=== PATIENT | female | born 1995 | race Caucasian/White ===

== ENCOUNTER 2024-03-23 09:27 | Emergency (ER) | payer OTHER ==
[~2024-03-23] VITALS: Ht 160 cm; Wt 90.7 kg
[2024-03-23 09:43] VITALS: O2SAT 99
[2024-03-23 09:44] LABS: BASOPHILS % 0.9 % (0.0-2.0); EOSINOPHILS % 1.3 % (0.0-5.0); HEMATOCRIT. 39.6 % (36.0-48.0); LYMPHOCYTES % 31.8 % (20.0-50.0); MEAN CORPUSCULAR HEMOGLOBIN 29.7 pg (28.0-32.0); MEAN CORPUSCULAR HGB CONC 32.9 g/dL (31.0-37.0); MEAN CORPUSCULAR VOLUME 90.4 fL (81.0-99.0); MEAN PLATELET VOLUME 6.5 fl (7.4-10.4); MONOCYTES % 5.1 % (2.0-8.0); NEUTROPHILS % 60.9 % (40.0-76.0); PLATELET 312 x1000/uL (130-400); RED BLOOD CELL COUNT 4.38 mill/uL (4.2-5.4); RED CELL DISTRIBUTION WIDTH 13.1 % (11.6-14.6); WHITE BLOOD COUNT 6.5 x1000/uL (4.5-11.0)
[2024-03-23 09:50] LABS: CHLORIDE 107 mEq/L (98-107); SODIUM 137 mEq/L (136-145)
[2024-03-23 09:52] LABS: CALCIUM 9.5 mg/dL (8.7-10.4); CARBON DIOXIDE 25 mEq/L (21-32)
[2024-03-23 09:57] LABS: CREATININE 0.6 mg/dL (0.6-1.0); GLUCOSE 94 mg/dL (70-105); UREA NITROGEN BLOOD 7 mg/dL (9-23)
[2024-03-23 09:59] LABS: ALANINE AMINOTRANSFERASE 24 IU/L (10-49); ALBUMIN 4.3 g/dL (3.2-4.8); ASPARTATE AMINOTRANSFERASE 19 IU/L (<34); BILIRUBIN DIRECT 0.2 mg/dL (<=3.0); BILIRUBIN TOTAL 0.7 mg/dL (0.1-1.0); PROTEIN TOTAL 7.2 g/dL (6.0-8.3)
[2024-03-23 10:01] LABS: HCG SCREEN NEGATIVE
[2024-03-23] MEDS: ONDANSETRON HCL 4MG TABLET PO ONE (10:21)
[2024-03-23] MEDS: FAMOTIDINE 20MG TABLET PO ONE (10:21)
[2024-03-23 10:49] LABS: CLARITY URINE CLEAR (CLEAR); COLOR URINE ORANGE (YELLOW); GLUCOSE URINE NEGATIVE (NEGATIVE); KETONES URINE NEGATIVE (NEGATIVE); LEUKOCYTE ESTERASE URINE TRACE (NEGATIVE); NITRITE URINE NEGATIVE (NEGATIVE); OCCULT BLOOD URINE 3+ (NEGATIVE); PH URINE 7.5 (4.5-8.0); PROTEIN URINE NEGATIVE (NEGATIVE); SPECIFIC GRAVITY URINE 1.009 (1.005-1.030); UROBILINOGEN URINE 0.2 E.U./dL (0.2-1.0)
[2024-03-23 11:13] LABS: RBC URINE 50-100 /hpf (0-2); SQUAMOUS EPITHELIAL CELL URINE FEW /lpf (RARE/1+)
[2024-03-23 11:14] LABS: BACTERIA URINE TRACE
[2024-03-23 11:15] LABS: WBC URINE 0-2 /hpf (0-2)
[2024-03-23] MEDS ORDERED: OMEP20CA14 MT (11:52)
[2024-03-23 12:08] VITALS: BP 131/61; PULSE 65; RESP 17; TEMP 36.66960; O2SAT 98
== END 2024-03-23 12:09 | disposition home or self-care (01) ==
LOC: ER 09:27
DX: K21.9 Gastro-esophageal reflux disease without esophagitis (principal)
CPT/HCPCS: 99284; 76705; 80076; 80048; 81003; 84703; 83690; 85025; 36415; Q0162

== ENCOUNTER 2024-06-28 19:44 | Emergency (ER) | payer OTHER ==
[~2024-06-28] VITALS: Ht 160 cm; Wt 91.0 kg
[~2024-06-28 19:44] MED LIST: OMEP20CA14 MT
[2024-06-28 19:54] VITALS: O2SAT 100
[2024-06-28 20:03] VITALS: TEMP 97.6; O2SAT 98
[2024-06-28 21:14] VITALS: BP 134/79; PULSE 68; RESP 18
[2024-06-28] MEDS: KETOROLAC 15MG/ML VIAL IM ONE (21:14)
[2024-06-29] MEDS ORDERED: IBUP-2029 MT (01:15)
== END 2024-06-29 01:35 | disposition home or self-care (01) ==
LOC: ER 19:44
DX: R51.9 Headache, unspecified (principal); Z79.899 Other long term (current) drug therapy
CPT/HCPCS: 81025; 70450; 96372; 99285; J1885; Z7610 ×2; 96365